=== PATIENT | female | born 1975 | race Hispanic/Latino ===

== ENCOUNTER → 2023-10-01 | Day surgery (SDC) | payer BC ==
[2023-10-01] MEDS: ACETAMINOPHEN 325 MG TABLET ONE (08:10)
[2023-10-01] MEDS: NA CHLORIDE 0.9% 250 ML ONE (08:25)
[2023-10-01 09:18] VITALS: O2SAT 100; BMI 36.6
[2023-10-01 11:03] VITALS: BP 112/67; TEMP 97.7
[2023-10-01 12:43] LABS: Hematocrit 25.5 % (36.0-45.0); Hemoglobin 7.5 g/dL (12.0-15.0)
== END ==
LOC: DS 07:57
PROVIDERS: ATTEND Internal Medicine
DX: D50.8 Other iron deficiency anemias (principal); N92.0 Excessive and frequent menstruation with regular cycle; E03.8 Other specified hypothyroidism
CPT/HCPCS: 36415; 86900; 86850; 86901; 86920; 85018; 85014; 86922; 36430; P9016; J7050